=== PATIENT | male | born 2000 | race Caucasian/White ===

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

== ENCOUNTER 2020-12-31 22:24 | Inpatient (IN) ==
[2020-12-31] MEDS ORDERED: DIPHTHERIA/TETANUS ADULT VACCINE 0.5 ML SYRINGE IM ONE (22:34)
[2020-12-31] MEDS ORDERED: SODIUM CHLORIDE 0.9% 1,000 ML IV STA (22:34)
[2020-12-31] MEDS ORDERED: fentaNYL 100 MCG/2 ML VIAL ONE (22:42)
[2020-12-31] MEDS ORDERED: MIDAZOLAM 2 MG/2 ML VIAL ONE (22:42)
[2020-12-31] MEDS ORDERED: PHENYLEPHRINE 10 MG/1 ML VIAL IV ONE (22:44)
[2020-12-31 23:05] LABS: Albumin 3.4 G/DL (3.4-5.0); Bilirubin,Total 0.8 MG/DL (0.2-1.0); Calcium 8.6 MG/DL (8.5-10.1); Potassium 3.8 MMOL/L (3.5-5.1); Total Protein 6.8 G/DL (6.4-8.2)
[2020-12-31 23:16] LABS: Amorphous Crystals,Urine Occasional /HPF (Few); Bilirubin,Urine Negative (Negative); Blood, Urine Negative (Negative); Glucose,Urine (UA) Negative (Negative); Ketones,Urine Negative (Negative); Mucus,Urine Occasional /LPF (Occasional); Nitrite,Urine Negative (Negative); Protein,Urine Negative; RBC,Urine 2 /HPF (0-4); Urine Appearance CLEAR (Clear); Urine Color Yellow (Yellow); Urine Specific Gravity 1.021 (1.001-1.035); Urine Urobilinogen < 2.0 EU/DL (0.2-1.0); WBC,Urine 1 /HPF (0-6)
[2020-12-31 23:29] LABS: Barbiturates Screen,Urine Negative (Negative); Benzodiazepines Screen,Urine Positive (Negative); Cannabinoid Screen,Urine Negative (Negative); Opiate Screen,Urine Negative (Negative); Phencyclidine Screen,Urine Negative (Negative)
[2020-12-31] MEDS ORDERED: ACETAMINOPHEN 1,000 MG/100 ML VIAL IV ONE (23:41)
[2020-12-31] MEDS ORDERED: LIDOCAINE 2% 5 ML VIAL ONE (23:41)
[2020-12-31] MEDS ORDERED: SUCCINYLCHOLINE 200 MG/10 ML VIAL ONE (23:41)
[2020-12-31] MEDS ORDERED: PHENYLEPHRINE 1 MG/10 ML SYRINGE IV ONE (23:41)
[2020-12-31] MEDS ORDERED: ROCURONIUM 50 MG/5 ML VIAL IV ONE (23:41)
[2020-12-31] MEDS ORDERED: propofoL 200 MG/20 ML VIAL IV ONE (23:41)
[2020-12-31] MEDS ORDERED: SEVOFLURANE 1 UNIT/15 MINUTE INH ONE (23:41)
[2020-12-31] MEDS ORDERED: SUGAMMADEX 200 MG/2 ML VIAL IV ONE (23:44)
[2021-01-01] MEDS ORDERED: fentaNYL 100 MCG/2 ML VIAL ONE (00:16)
[2021-01-01 01:10] LABS: HIV Antigen/Antibody Result Nonreactive (Nonreactive); Hepatitis B Surface Ag Quant < 0.10 Index; Hepatitis B Surface Ag Result Non-Reactive (NonReactive); Hepatitis C Virus Ab Quant 0.32 Index; Hepatitis C Virus Ab Result Non-Reactive (NonReactive)
[2021-01-01] MEDS ORDERED: PROMETHAZINE 25 MG/1 ML VIAL IM PRN (01:27)
[2021-01-01] MEDS ORDERED: ONDANSETRON 4 MG/2 ML VIAL IV PRN (01:27)
[2021-01-01] MEDS: LACTATED RINGERS 1,000 ML IV SCH ×3 (01:42→18:50)
[2021-01-01] MEDS: KETOROLAC 15 MG/1 ML VIAL IV SCH ×4 (01:43→18:50)
[2021-01-01] MEDS: HYDROmorphone 2 MG/1 ML VIAL IV PRN (01:46)
[2021-01-01 06:02] LABS: Basophils # 0.1 10*3/uL (0.0-0.2); Basophils % 0.5 % (0.0-0.8); Eosinophils % 0.3 % (0.00-10.9); Hematocrit 47.3 VOL% (42.0-52.0); Immature Granulocytes % 0.3 %; Immature Granulocytes Absolute 0.03 #; Lymphocytes # 0.8 10*3/uL (1.4-4.0); Lymphocytes % 6.7 % (21.2-54.2); Mean Corpuscular HGB Conc 31.7 GM/DL (32-36); Mean Corpuscular Volume 86.3 FL (87-102); Mean Platelet Volume 10.4 FL (9.6-12.0); Neutrophils % 84.2 % (38.7-73.9); Platelet Count 280 T/CUMM (130-400); Red Blood Count 5.48 MC/CUMM (3.8-5.5); Red Cell Distribution Width 13.4 % (9.3-17.3); White Blood Count 11.8 T/CUMM (4-12)
[2021-01-01 06:19] LABS: Calcium 8.3 MG/DL (8.5-10.1); Osmolality,Calculated 282.1 MOS/KG (273-304); Potassium 4.6 MMOL/L (3.5-5.1)
[2021-01-01 06:32] LABS: Band Neutrophils 15 % (0-10); Lymphocytes 5 % (20-55); Metamyelocytes 1 %; Segmented Neutrophils 71 % (50-85); Total Cells Counted 100
[2021-01-01 06:33] LABS: Hypochromasia 1+; Microcytosis 1+; Platelet Estimate Normal
[2021-01-01] MEDS ORDERED: LACTATED RINGERS 1,000 ML IV ONE (07:50)
[2021-01-01] MEDS: PANTOPRAZOLE 40 MG VIAL IV SCH (08:17)
[2021-01-01] MEDS ORDERED: LORazepam 2 MG/1 ML VIAL IV PRN (14:55)
[2021-01-01] MEDS: ENOXAPARIN 40 MG/0.4 ML SYRINGE SUBCUT SCH (17:52)
[2021-01-02] MEDS: KETOROLAC 15 MG/1 ML VIAL IV SCH ×4 (01:24→20:46)
[2021-01-02 07:01] LABS: Calcium 8.2 MG/DL (8.5-10.1); Osmolality,Calculated 264.7 MOS/KG (273-304); Potassium 4.9 MMOL/L (3.5-5.1)
[2021-01-02] MEDS ORDERED: LACTATED RINGERS 1,000 ML IV ONE (07:17)
[2021-01-02] MEDS: LACTATED RINGERS 1,000 ML IV SCH ×3 (07:54→20:46)
[2021-01-02] MEDS: PANTOPRAZOLE 40 MG VIAL IV SCH (08:25)
[2021-01-02 10:06] LABS: Basophils % 0.2 % (0.0-0.8); Eosinophils # 0.1 10*3/uL (0.0-0.87); Eosinophils % 0.5 % (0.00-10.9); Hematocrit 42.6 VOL% (42.0-52.0); Hemoglobin 13.3 GM/DL (14.0-18.0); Immature Granulocytes % 0.6 %; Immature Granulocytes Absolute 0.08 #; Lymphocytes # 0.8 10*3/uL (1.4-4.0); Lymphocytes % 5.9 % (21.2-54.2); Mean Corpuscular HGB Conc 31.2 GM/DL (32-36); Mean Corpuscular Volume 87.5 FL (87-102); Mean Platelet Volume 11.1 FL (9.6-12.0); Monocytes % 7.7 % (1.7-12.7); Neutrophils % 85.1 % (38.7-73.9); Platelet Count 231 T/CUMM (130-400); Red Blood Count 4.87 MC/CUMM (3.8-5.5); Red Cell Distribution Width 13.9 % (9.3-17.3); White Blood Count 13.7 T/CUMM (4-12)
[2021-01-02] MEDS ORDERED: MAGNESIUM SULF RIDER 4 GM in PREMIX 1 EACH IV PRN (10:17)
[2021-01-02] MEDS ORDERED: MAGNESIUM SULF RIDER 2 GM in PREMIX 1 EACH IV PRN (10:17)
[2021-01-02] MEDS: cephALEXin 500 MG CAPSULE PO SCH ×2 (11:59→18:15)
[2021-01-02] MEDS: HYDROmorphone 2 MG/1 ML VIAL IV PRN (15:50)
[2021-01-02] MEDS: ENOXAPARIN 40 MG/0.4 ML SYRINGE SUBCUT SCH (18:17)
[2021-01-03] MEDS: cephALEXin 500 MG CAPSULE PO SCH ×4 (00:15→17:30)
[2021-01-03] MEDS: HYDROmorphone 2 MG/1 ML VIAL IV PRN ×3 (00:39→13:48)
[2021-01-03] MEDS: KETOROLAC 15 MG/1 ML VIAL IV SCH ×4 (01:27→20:49)
[2021-01-03] MEDS: LACTATED RINGERS 1,000 ML IV SCH ×3 (05:16→16:52)
[2021-01-03 05:58] LABS: Basophils % 0.2 % (0.0-0.8); Eosinophils # 0.1 10*3/uL (0.0-0.87); Eosinophils % 0.5 % (0.00-10.9); Hemoglobin 11.1 GM/DL (14.0-18.0); Immature Granulocytes Absolute 0.12 #; Lymphocytes # 0.7 10*3/uL (1.4-4.0); Lymphocytes % 6.2 % (21.2-54.2); Mean Corpuscular HGB Conc 32.6 GM/DL (32-36); Mean Corpuscular Volume 84.8 FL (87-102); Mean Platelet Volume 10.9 FL (9.6-12.0); Monocytes % 5.6 % (1.7-12.7); Neutrophils % 86.5 % (38.7-73.9); Platelet Count 186 T/CUMM (130-400); Red Blood Count 4.01 MC/CUMM (3.8-5.5); White Blood Count 11.6 T/CUMM (4-12)
[2021-01-03 06:14] LABS: Calcium 8.2 MG/DL (8.5-10.1); Osmolality,Calculated 270.1 MOS/KG (273-304); Potassium 4.1 MMOL/L (3.5-5.1)
[2021-01-03 06:27] LABS: Hypochromasia 1+; Platelet Estimate Adequate
[2021-01-03] MEDS: PANTOPRAZOLE 40 MG VIAL IV SCH (08:18)
[2021-01-03] MEDS: ENOXAPARIN 40 MG/0.4 ML SYRINGE SUBCUT SCH (17:30)
[2021-01-04] MEDS: cephALEXin 500 MG CAPSULE PO SCH ×4 (01:12→17:19)
[2021-01-04] MEDS: LACTATED RINGERS 1,000 ML IV SCH ×2 (04:09→10:57)
[2021-01-04 05:42] LABS: Basophils % 0.1 % (0.0-0.8); Eosinophils # 0.1 10*3/uL (0.0-0.87); Hematocrit 32.4 VOL% (42.0-52.0); Hemoglobin 10.2 GM/DL (14.0-18.0); Immature Granulocytes % 0.9 %; Immature Granulocytes Absolute 0.08 #; Lymphocytes # 0.7 10*3/uL (1.4-4.0); Lymphocytes % 7.3 % (21.2-54.2); Mean Corpuscular HGB Conc 31.5 GM/DL (32-36); Mean Corpuscular Volume 87.3 FL (87-102); Mean Platelet Volume 10.8 FL (9.6-12.0); Monocytes % 9.9 % (1.7-12.7); Neutrophils % 80.8 % (38.7-73.9); Platelet Count 181 T/CUMM (130-400); Red Blood Count 3.71 MC/CUMM (3.8-5.5); Red Cell Distribution Width 14.2 % (9.3-17.3); White Blood Count 9.2 T/CUMM (4-12)
[2021-01-04] MEDS: HYDROmorphone 2 MG/1 ML VIAL IV PRN ×3 (05:58→17:21)
[2021-01-04 06:07] LABS: Calcium 8.2 MG/DL (8.5-10.1); Osmolality,Calculated 274.8 MOS/KG (273-304)
[2021-01-04 06:10] LABS: Band Neutrophils 2 % (0-10); Eosinophils 2 % (0-10); Hypochromasia 1+; Lymphocytes 8 % (20-55); Microcytosis 1+; Platelet Estimate Adequate; Segmented Neutrophils 84 % (50-85); Total Cells Counted 100
[2021-01-04] MEDS: PANTOPRAZOLE 40 MG VIAL IV SCH (10:35)
[2021-01-04] MEDS: PIPERACILLIN/TAZOBACTAM 3,375 MG in SODIUM CHLORIDE 0.9% 100 ML IV SCH (17:17)
[2021-01-04] MEDS: ENOXAPARIN 40 MG/0.4 ML SYRINGE SUBCUT SCH (18:03)
[2021-01-05] MEDS: cephALEXin 500 MG CAPSULE PO SCH ×2 (00:22→05:10)
[2021-01-05] MEDS: PIPERACILLIN/TAZOBACTAM 3,375 MG in SODIUM CHLORIDE 0.9% 100 ML IV SCH ×3 (00:22→17:55)
[2021-01-05] MEDS: LACTATED RINGERS 1,000 ML IV SCH ×4 (00:24→17:56)
[2021-01-05 08:54] LABS: Basophils % 0.3 % (0.0-0.8); Eosinophils # 0.1 10*3/uL (0.0-0.87); Eosinophils % 1.1 % (0.00-10.9); Hematocrit 33.1 VOL% (42.0-52.0); Hemoglobin 10.7 GM/DL (14.0-18.0); Immature Granulocytes % 1.3 %; Lymphocytes # 0.6 10*3/uL (1.4-4.0); Lymphocytes % 7.4 % (21.2-54.2); Mean Corpuscular HGB Conc 32.3 GM/DL (32-36); Mean Corpuscular Volume 83.8 FL (87-102); Mean Platelet Volume 10.1 FL (9.6-12.0); Monocytes % 11.7 % (1.7-12.7); Neutrophils % 78.2 % (38.7-73.9); Platelet Count 273 T/CUMM (130-400); Red Blood Count 3.95 MC/CUMM (3.8-5.5); Red Cell Distribution Width 14.4 % (9.3-17.3); White Blood Count 7.8 T/CUMM (4-12)
[2021-01-05] MEDS: PANTOPRAZOLE 40 MG VIAL IV SCH (09:01)
[2021-01-05 09:13] LABS: Calcium 8.7 MG/DL (8.5-10.1); Osmolality,Calculated 268.4 MOS/KG (273-304)
[2021-01-05 13:17] LABS: Bacteria,Urine Occasional /HPF (Few); Bilirubin,Urine Negative (Negative); Blood, Urine Small mg/dL (Negative); Glucose,Urine (UA) Negative (Negative); Ketones,Urine Negative (Negative); Mucus,Urine Occasional /LPF (Occasional); Nitrite,Urine Negative (Negative); Protein,Urine 30 MG/DL; RBC,Urine 3 /HPF (0-4); Urine Appearance CLEAR (Clear); Urine Color Yellow (Yellow); Urine Specific Gravity 1.027 (1.001-1.035); WBC,Urine 1 /HPF (0-6)
[2021-01-05 14:29] LABS: Barbiturates Screen,Urine Negative (Negative); Benzodiazepines Screen,Urine Negative (Negative); Cannabinoid Screen,Urine Negative (Negative); Opiate Screen,Urine Positive (Negative); Phencyclidine Screen,Urine Negative (Negative)
[2021-01-05] MEDS: ENOXAPARIN 40 MG/0.4 ML SYRINGE SUBCUT SCH (18:51)
[2021-01-06] MEDS: PIPERACILLIN/TAZOBACTAM 3,375 MG in SODIUM CHLORIDE 0.9% 100 ML IV SCH ×3 (00:25→17:32)
[2021-01-06] MEDS: LACTATED RINGERS 1,000 ML IV SCH ×2 (03:36→13:14)
[2021-01-06 05:22] LABS: Basophils % 0.3 % (0.0-0.8); Eosinophils # 0.2 10*3/uL (0.0-0.87); Eosinophils % 2.6 % (0.00-10.9); Immature Granulocytes % 2.9 %; Immature Granulocytes Absolute 0.22 #; Lymphocytes # 0.9 10*3/uL (1.4-4.0); Lymphocytes % 12.1 % (21.2-54.2); Mean Corpuscular HGB Conc 31.4 GM/DL (32-36); Mean Corpuscular Volume 86.4 FL (87-102); Mean Platelet Volume 9.6 FL (9.6-12.0); Monocytes % 12.7 % (1.7-12.7); Neutrophils % 69.4 % (38.7-73.9); Platelet Count 303 T/CUMM (130-400); Red Blood Count 4.05 MC/CUMM (3.8-5.5); Red Cell Distribution Width 14.1 % (9.3-17.3); White Blood Count 7.7 T/CUMM (4-12)
[2021-01-06 05:42] LABS: Calcium 8.6 MG/DL (8.5-10.1); Potassium 4.1 MMOL/L (3.5-5.1)
[2021-01-06 07:18] LABS: Eosinophils 2 % (0-10); Hypochromasia Slight; Lymphocytes 12 % (20-55); Platelet Estimate Normal; Segmented Neutrophils 74 % (50-85); Total Cells Counted 100
[2021-01-06] MEDS: PANTOPRAZOLE 40 MG VIAL IV SCH (09:14)
[2021-01-06] MEDS: ENOXAPARIN 40 MG/0.4 ML SYRINGE SUBCUT SCH (17:33)
[2021-01-07] MEDS: PIPERACILLIN/TAZOBACTAM 3,375 MG in SODIUM CHLORIDE 0.9% 100 ML IV SCH ×3 (01:03→17:34)
[2021-01-07] MEDS: LACTATED RINGERS 1,000 ML IV SCH (05:45)
[2021-01-07] MEDS: PANTOPRAZOLE 40 MG VIAL IV SCH (08:21)
[2021-01-07] MEDS: ENOXAPARIN 40 MG/0.4 ML SYRINGE SUBCUT SCH (17:43)
[2021-01-08] MEDS: PIPERACILLIN/TAZOBACTAM 3,375 MG in SODIUM CHLORIDE 0.9% 100 ML IV SCH (00:41)
[2021-01-08 04:17] LABS: Basophils # 0.1 10*3/uL (0.0-0.2); Basophils % 0.5 % (0.0-0.8); Eosinophils # 0.2 10*3/uL (0.0-0.87); Hematocrit 34.2 VOL% (42.0-52.0); Immature Granulocytes Absolute 0.51 #; Lymphocytes # 0.9 10*3/uL (1.4-4.0); Lymphocytes % 8.9 % (21.2-54.2); Mean Corpuscular HGB Conc 32.2 GM/DL (32-36); Mean Corpuscular Volume 83.8 FL (87-102); Mean Platelet Volume 9.5 FL (9.6-12.0); Monocytes % 9.1 % (1.7-12.7); Neutrophils % 74.5 % (38.7-73.9); Platelet Count 351 T/CUMM (130-400); Red Blood Count 4.08 MC/CUMM (3.8-5.5); Red Cell Distribution Width 14.3 % (9.3-17.3); White Blood Count 10.3 T/CUMM (4-12)
[2021-01-08 04:29] LABS: Calcium 8.8 MG/DL (8.5-10.1); Osmolality,Calculated 269.1 MOS/KG (273-304); Potassium 3.7 MMOL/L (3.5-5.1)
[2021-01-08 04:39] LABS: Eosinophils 1 % (0-10); Lymphocytes 10 % (20-55); Nucleated Red Blood Cells 1 (0-5); Segmented Neutrophils 86 % (50-85); Total Cells Counted 100
[2021-01-08 04:40] LABS: Hypochromasia 1+; Microcytosis 1+; Platelet Estimate Adequate
[2021-01-08] MEDS: PANTOPRAZOLE 40 MG VIAL IV SCH (09:00)
[2021-01-08] MEDS ORDERED: CEFUROXIME 250 MG TABLET PO SCH (09:00)
[2021-01-08] MEDS: LACTATED RINGERS 1,000 ML IV SCH (09:01)
[2021-01-08] MEDS: HYDROmorphone 2 MG/1 ML VIAL IV PRN (09:04)
[2021-01-08 10:59] VITALS: BP 112/72
== END 2021-01-08 14:00 | disposition home health service (06) | DRG 911 ==
LOC: EDBD → N.ED 22:24 → EDBD 22:30 → EDUNIT# 22:30 → N.EDINP 22:43 → N.3E 01-01 01:02
PROVIDERS: ADMIT Surgery; ATTEND Surgery